=== PATIENT | female | born 1985 | race African-American/Black ===

== ENCOUNTER 2016-08-12 21:44 | Emergency (ER) | payer OTHER ==
[2016-08-12 22:02] VITALS: BP 144/89; PULSE 119; TEMP 98.4; BMI 39.9
[2016-08-12] MEDS ORDERED: OXYCODONE/APAP 5/325MG COMBO TABLET PO ONE (22:13)
[2016-08-12] MEDS ORDERED: ACETAMINOPHEN 325 MG TABLET (FP) PO ONE (22:13)
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
[2016-08-12] MEDS ORDERED: OXYCODONE/APAP 5/325MG COMBO TABLET ONE (23:07)
[2016-08-12] MEDS ORDERED: ACETAMINOPHEN 325 MG TABLET (FP) ONE (23:07)
[2016-08-13] MEDS ORDERED: KETOROLAC TROMETHAMINE 60 MG/2 ML VIAL IM ONE (00:37)
[2016-08-13] MEDS ORDERED: METHOCARBAMOL 500 MG TABLET PO ONE (00:37)
[2016-08-13] MEDS ORDERED: METHOCARBAMOL 500 MG TABLET ONE (01:03)
[2016-08-13] MEDS ORDERED: KETOROLAC TROMETHAMINE 60 MG/2 ML VIAL ONE (01:03)
== END 2016-08-13 01:26 | disposition home or self-care (01) ==
LOC: JER 21:44
PROC: 3E0233Z Introduction of Anti-inflammatory into Muscle, Percutaneous Approach (ICD-10-PCS; principal; 2016-08-12)
DX: S13.4XXA Sprain of ligaments of cervical spine, initial encounter (principal); M62.838 Other muscle spasm; V43.62XA Car passenger injured in collision with other type car in traffic accident, initial encounter; Y92.414 Local residential or business street as the place of occurrence of the external cause; Y93.89 Activity, other specified; Y99.8 Other external cause status
CPT/HCPCS: 70450-TC; 72125-TC; 84703; 99282-25

== ENCOUNTER 2018-11-03 21:45 | Inpatient (IN) | payer OTHER ==
[2018-11-03 22:56] VITALS: BMI 44.6
[2018-11-03] MEDS ORDERED: PROMETHAZINE HCL 25 MG/1 ML VIAL IVPUSH ONE (23:11)
[2018-11-03] MEDS ORDERED: DINOPROSTONE 10 MG VAGINAL SUPPOSITORY VG ONE (23:11)
[2018-11-03] MEDS ORDERED: BUTORPHANOL TARTRATE 1 MG/ML VIAL IVPB ONE (23:11)
--- NOTE | 2018-11-03 23:11 | HP ---
Past Medical History - Primary Care Physician PCP:: Ale Pastor - Admission Chief Complaint: 33yo P 2 @ 37.5 wks found to have increased proteinuria on 24hr UA - 475mg/24hr, was instructed by Dr. Buitrago in consultation with Dr. Oswald to come to the hospital for Induction of labor, She reports no COSTA, no Visual changes, no RUQ pain. She reports smoking on her way to the hospital. She suffers from GERD and consistently treats herself with Pepcid and Tums. She has no contructions, no VB, no LOF History of Present Illness: 1. Morbid obesity - Sleep apnea, does not use the device, GCT normal - EFW 7lb 2. Every day smoker 3. Gestational proteinuria - labs wnl, BPs on admission after smoking are not PEC range 4. GERD - takes Pepcid and Tums daily 5. HSV pos serology - Valtrex now History Source: Patient, Medical Record Limitations to Obtaining History: No Limitations - Past Medical History Pulmonary: Yes: Sleep Apnea, Other (chronic daily smoker) Gastrointestinal: Yes: GERD ...: 6 ...Para: 2 ...Term: 2 ( x 2 - 7lb, reports no complications) ...: 0 ...Spon : 0 ...Induced : 3 ...Multiple Gestation: 0 ...LMP: 02/10/18 ... Weeks Gestation by Dates: 38.0 ...EDC by Dates: 11/17/18 ...EDC by Sono: 11/20/18 - Past Surgical History Past Surgical History: Yes: None Hx Myomectomy: No Hx Transabdominal Cerclage: No - Smoking History Smoking history: Current every day smoker Have you smoked in the past 12 months: Yes Aproximately how many cigarettes per day: 10 - Alcohol/Substance Use Hx Alcohol Use: No History of Substance Use: reports: None - Social History Usual Living Arrangement: Yes: With Child History of Recent Travel: No Home Medications - Allergies Allergies/Adverse Reactions: Allergies Allergy/AdvReac Type Severity Reaction Status Date / Time codeine Allergy Severe "tongue Verified 11/03/18 22:46 swell up" peanuts Allergy Severe toungue Uncoded 11/03/18 22:46 swelling - Home Medications Home Medications: Ambulatory Orders Albuterol Sulfate Inhaler - [Ventolin HFA Inhaler -] 2 inh PO Q4H #1 inh Ibuprofen [Motrin -] 600 mg PO TID #30 tablet 08/13/16 Methocarbamol [Robaxin -] 500 mg PO TID #30 tablet 08/13/16 Family Disease History - Family Disease History Family History: Unremarkable Review of Systems - Review of Systems Constitutional: reports: No Symptoms Eyes: reports: No Symptoms HENT: reports: No Symptoms Neck: reports: No Symptoms Cardiovascular: reports: No Symptoms Respiratory: reports: No Symptoms Gastrointestinal: reports: Other (Epigastric pain) Genitourinary: reports: No Symptoms Breasts: reports: No Symptoms Reported Musculoskeletal: reports: No Symptoms Integumentary: reports: No Symptoms Neurological: reports: No Symptoms Endocrine: reports: No Symptoms Hematology/Lymphatic: reports: No Symptoms Psychiatric: reports: No Symptoms Physical Exam - Maternity Vital Signs: Vital Signs Temperature 98.5 F 11/03/18 21:45 Pulse Rate 109 H 11/03/18 21:45 Respiratory Rate 18 11/03/18 21:45 Blood Pressure 136/76 11/03/18 21:45 O2 Sat by Pulse Oximetry (%) Constitutional: Yes: Well Nourished, No Distress, Calm Eyes: Yes: WNL, Conjunctiva Clear HENT: Yes: WNL, Atraumatic, Normocephalic Neck: Yes: WNL, Supple, Trachea Midline Cardiovascular: Yes: Regular Rate and Rhythm Lungs: Clear to auscultation Breast(s): Yes: WNL - Abdominal Exam/OB Fundal Height: 38 (EFW 7lb) Number of Fetuses: Single Presentation: Vertex Contractions: No Monitor Mode: External Heart Rate (range): 130 Heart Rate Location: Midline Category: I Accelerations: Uniform Decelerations: None - Vaginal Exam/OB Vaginal Bleediing: No Amniotic Membrane Status: Intact Presentation: Vertex/Position Station: -3 - Physical Exam Musculoskeletal: Yes: WNL, Muscle Weakness Edema: No Integumentary: Yes: WNL Deep Tendon Reflex Grade: Normal +2 ...Motor Strength: WNL Psychiatric: Yes: WNL, Alert, Oriented Assessment/Plan 33yo P2 @ 37.5wks with elevated BP to 155/92 on 7/2 and now significant proteinuria on 24hr UA collection of 475mg/24hr She is a smoker and has no other signs of preeclampsia, So likely mild preeclampsia with agravating factor of daily smoking, which increases risk of intrauterine demise Was counselled by DR. Buitrago and Dr. Oswald for Induction of labor I additionally explained the Induction process to her She would require cervical ripening, vaginal agent first and than Pitocin IV All pain medications discussed with her as well She requested food prior to IOL Admit to L&D IVF, NPO after she eats prior to starting the induction Will monitor BPs Preeclamptic labs Since mild Preeclampsia will currently not consider Mg SO4 seizure prophylaxis
[2018-11-03] MEDS: DEXTROSE 5%-LACTATED RINGERS 1,000 ML IV SCH (23:15)
[2018-11-03] MEDS ORDERED: ELECTROLYTE-148 SOLN 1,000 ML IV SCH (23:15)
[2018-11-03] MEDS ORDERED: valACYclovir HCL 500 MG TABLET (FP) PO ONE (23:25)
[2018-11-04 00:33] LABS: BASO % 0.2 % (0-2.0); EOS % 0.9 % (0-4.5); HEMATOCRIT 33.4 % (32.4-45.2); HEMOGLOBIN 11.1 GM/dL (10.7-15.3); LYMPH % 20.4 % (8-40); MCH 30.3 pg (25.7-33.7); MCHC 33.2 g/dl (32.0-36.0); MEAN CELL VOLUME 91.4 fl (80-96); MEAN PLT VOLUME 10.4 fl (7.5-11.1); MONO % 4.9 % (3.8-10.2); NEUT % 73.6 % (42.8-82.8); PLATELET COUNT 189 K/MM3 (134-434); RBC 3.65 M/mm3 (3.60-5.2); RDW 14.6 % (11.6-15.6); WHITE BLOOD COUNT 11.7 K/mm3 (4.0-10.0)
[2018-11-04 00:47] LABS: INR 0.9 (0.83-1.09); PROTHROMBIN TIME (PATIENT) 10.6 SEC (9.7-13.0)
[2018-11-04 00:49] LABS: ACTIVATED PTT 28.4 SECONDS (25.2-36.5)
[2018-11-04 00:54] LABS: BLOOD UREA NITROGEN 6.7 mg/dL (7-18); CALCIUM 8.2 mg/dL (8.5-10.1); CREATININE 0.5 mg/dL (0.55-1.3); POTASSIUM 3.6 mmol/L (3.5-5.1); SGOT/AST 11 U/L (15-37); SGPT/ALT 19 U/L (13-61)
[2018-11-04 01:02] LABS: URIC ACID 3.1 mg/dL (2.6-7.2)
[2018-11-04] MEDS: RANITIDINE HCL 150 MG TABLET (FP) PO SCH ×3 (01:30→22:45)
--- NOTE | 2018-11-04 02:10 | PN ---
Progress Note, Labor Vaginal Exam #1 Labor Exam Date: 11/04/18 Labor Exam Time: 01:45 Heart Rate (range): 140 Dilatation: 2 Effacement (%): 50% Amniotic Membrane Status: Intact Presentation: Vertex/Position Station: -4 Remarks: Patient finally agreed for Cervidil placement Placed into posterior fornix
[2018-11-04] MEDS ORDERED: ACETAMINOPHEN 500 MG TABLET (FP) ONE (11:29)
[2018-11-04] MEDS ORDERED: ACETAMINOPHEN 500 MG TABLET (FP) PO ONE (11:30)
[2018-11-04] MEDS ORDERED: OXYTOCIN 30 UNITS in 0.9% NS 30 UNIT/500 ML INFUS.BAG IVPB ONE (17:53)
[2018-11-04] MEDS ORDERED: OXYTOCIN 30 UNITS in 0.9% NS 30 UNIT/500 ML INFUS.BAG IVPB SCH (18:00)
[2018-11-04] MEDS ORDERED: ELECTROLYTE-148 SOLN 1,000 ML IV ONE (20:00)
--- NOTE | 2018-11-04 20:48 | PN ---
Ante-Partal Exam - Subjective Subjective: No complaints. Not feeling ctx's. Vital Signs: Vital Signs Temperature 98.2 F 11/04/18 20:00 Pulse Rate 82 11/04/18 20:00 Respiratory Rate 20 11/04/18 20:00 Blood Pressure 146/75 11/04/18 20:00 O2 Sat by Pulse Oximetry (%) Bleeding: No Headache: No Visual changes: No Right upper quadrant pain: No Pain (scale 1-10): 2 - Contractions Contractions: Yes Regularity: Regular Intensity: Unaware Monitor Mode: External - Exam during Labor Heart Rate: 130 Variability: Moderate Heart Rate Location: Midline Category: I Monitor Accelerations: Present Monitor Decelerations: None Exam: Vaginal Dilatation (cm): 3 Effacement (%): 20 Amniotic Membrane Status: Intact Presentation: Vertex Station: -4 Remarks: Adequate gynecoid pelvimetry. No HSV lesions. - Intrapartum Hemorrhage Risk Medium Risk Factors: None High Risk Factors: None Risk Score: 0 Risk Level: Low Risk - Assessment/Plan Assessment/Plan: 33yo P2 with at EGA 37w6d admitted for suspected preeclampsia in setting of morbid obesity. Pt's BP are in mild PEC range. She is asymptomatic. Fetus with Category I tracing. Plan to continue pitocin. Will try AROM when head is lower. Risks of obesity at delivery d/w pt.
[2018-11-05] MEDS: DEXTROSE 5%-LACTATED RINGERS 1,000 ML IV SCH ×2 (04:00→11:30)
--- NOTE | 2018-11-05 06:35 | PN ---
Ante-Partal Exam - Subjective Subjective: Pt w/o complaints, feels contractions. Vital Signs: Vital Signs Temperature 98.2 F 11/05/18 04:00 Pulse Rate 67 11/05/18 05:00 Respiratory Rate 20 11/05/18 05:00 Blood Pressure 117/51 L 11/05/18 05:00 O2 Sat by Pulse Oximetry (%) Bleeding: No Headache: No Visual changes: No Right upper quadrant pain: No Pain (scale 1-10): 4 - Contractions Contractions: Yes Regularity: Irregular Intensity: Mild Monitor Mode: External - Exam during Labor Heart Rate: 130 Variability: Moderate Heart Rate Location: Midline Category: I Monitor Accelerations: Present Monitor Decelerations: None Exam: Vaginal Dilatation (cm): 3 Effacement (%): 20 Amniotic Membrane Status: Intact Presentation: Vertex Station: -3 - Intrapartum Hemorrhage Risk Medium Risk Factors: None High Risk Factors: None Risk Score: 0 Risk Level: Low Risk - Assessment/Plan Assessment/Plan: 33yo P2 with pregn at 38wks admitted for labor indx. Pt with normal BP. tracing is Category I. Plan AROM with head descent.
--- NOTE | 2018-11-05 07:10 | PN ---
Ante-Partal Exam - Subjective Subjective: No complaints Vital Signs: Vital Signs Temperature 98.0 F 11/05/18 06:00 Pulse Rate 74 11/05/18 06:00 Respiratory Rate 20 11/05/18 06:00 Blood Pressure 129/64 11/05/18 06:00 O2 Sat by Pulse Oximetry (%) Bleeding: No Headache: No Visual changes: No Right upper quadrant pain: No Pain (scale 1-10): 4 - Contractions Contractions: Yes Regularity: Irregular (q3min) Intensity: Mild Monitor Mode: External - Exam during Labor Heart Rate: 130 Variability: Moderate Heart Rate Location: Midline Category: I Monitor Accelerations: Present Monitor Decelerations: None Exam: Vaginal Dilatation (cm): 3 Effacement (%): 20 Amniotic Membrane Status: Intact Presentation: Vertex Station: -4 - Intrapartum Hemorrhage Risk Medium Risk Factors: None High Risk Factors: None Risk Score: 0 Risk Level: Low Risk - Assessment/Plan Assessment/Plan: I attempted AROM however was unable to rupture membranes as head is out of pelvis and membranes could not be reached on exam. Will continue pitocin and await descent of head.
[2018-11-05] MEDS ORDERED: OXYTOCIN 30 UNITS in 0.9% NS 30 UNIT/500 ML INFUS.BAG IVPB ONE (09:52)
[2018-11-05] MEDS: RANITIDINE HCL 150 MG TABLET (FP) PO SCH (09:58)
[2018-11-05 10:02] VITALS: TEMP 98.4
[2018-11-05 11:13] VITALS: PULSE 86
[2018-11-05 13:46] LABS: RETICULOCYTES 1.96 % (0.5-1.5)
[2018-11-05 14:27] VITALS: BP 130/74
--- NOTE | 2018-11-05 14:39 | PN ---
Ante-Partal Exam - Subjective Subjective: Patient comfortable No contractions, mild back discomfort No headache, change in vision, RUQ pain Reports movement, denies leakage of fluid or vaginal bleeding Vital Signs: Vital Signs Temperature 98.4 F 11/05/18 10:00 Pulse Rate 86 11/05/18 11:00 Respiratory Rate 18 11/05/18 11:00 Blood Pressure 130/74 11/05/18 14:20 O2 Sat by Pulse Oximetry (%) Bleeding: No - Contractions Contractions: Yes Regularity: Regular Intensity: Unaware Monitor Mode: External - Exam during Labor Heart Rate: 140 Variability: Moderate Category: I Monitor Accelerations: Absent Monitor Decelerations: None Exam: Vaginal Dilatation (cm): 3 Effacement (%): 20 Presentation: Vertex Station: -4 - Intrapartum Hemorrhage Risk Medium Risk Factors: None High Risk Factors: None Risk Score: 0 Risk Level: Low Risk - Assessment/Plan Assessment/Plan: 33 yo HD # 3 @ 38 0/7 wks admitted for induction of labor for mild preeclampsia On pitocin for induction of labor, currently at 12, on pitocin for approximately 20 hours Patient maricarmen, however is not feeling contractions Unable to perform AROM as head is out of pelvis BPs mostly within normal range with occasional elevation (128-144 / 70-79) Repeat preeclamptic labs within normal limits; no proteinuria noted Discussed possible options including continuing induction of labor, delivery, or discharge home with close monitoring and readmission at a later date for induction of labor Reviewed risks of continued pitocin Reviewed risks of preeclampsia and possible development into ecclampsia Patient expresses strong desire to avoid delivery at all costs, strongly desires continued observation with plan for close BP monitring Patient reports she will check BPs at home TID She lives close and will present immediately to L&D / Triage if any worsening symptoms - to call or return if headache, change in vision, RUQ pain, new swelling, decreased movement, leakage of fluid, vaginal bleeding or contractions Plan for DC home with close follow up
[2018-11-05 14:44] LABS: EPI CELLS 29.8 /HPF (0-5/HPF); HYALINE CASTS 15 /lpf (0-8); PH,URINE 8.5 (5.0-8.0); URINE APPEARANCE CLOUDY; URINE BACTERIA 213.6 /hpf (NEGATIVE); URINE BILIRUBIN NEGATIVE (NEGATIVE); URINE COLOR YELLOW; URINE GLUCOSE (UA) NEGATIVE (NEGATIVE); URINE KETONE NEGATIVE (NEGATIVE); URINE LEUK ESTERASE 1+ (NEGATIVE); URINE NITRITE NEGATIVE (NEGATIVE); URINE PROTEIN NEGATIVE (NEGATIVE); URINE RBC 3 /hpf (0-4); URINE UROBILINOGEN 0.2 mg/dL (0.2-1.0); URINE WBC 4 /hpf (0-5)
== END 2018-11-05 16:05 | disposition home or self-care (01) | DRG 566 ==
LOC: JLDR 21:45
PROVIDERS: ADMIT Obstetrics & Gynecology; ATTEND Obstetrics & Gynecology
DX: O14.03 Mild to moderate pre-eclampsia, third trimester (principal); O99.213 Obesity complicating pregnancy, third trimester; E66.01 Morbid (severe) obesity due to excess calories; O12.13 Gestational proteinuria, third trimester; Z3A.38 38 weeks gestation of pregnancy; O26.893 Other specified pregnancy related conditions, third trimester; K21.9 Gastro-esophageal reflux disease without esophagitis; G47.30 Sleep apnea, unspecified; F17.210 Nicotine dependence, cigarettes, uncomplicated
CPT/HCPCS: 36415; 80048; 81003; 82977; 83010; 84450; 84460; 84550; 85025; 85032; 85044; 85610; 85730; 86593; 86850; 86900; 86901

== ENCOUNTER 2018-11-15 23:33 | Inpatient (IN) | payer OTHER ==
[2018-11-16] MEDS ORDERED: ELECTROLYTE-148 SOLN 500 ML IV SCH (01:00)
[2018-11-16] MEDS ORDERED: OXYTOCIN 30 UNITS in 0.9% NS 30 UNIT/500 ML INFUS.BAG IVPB ONE (02:00)
[2018-11-16] MEDS ORDERED: ELECTROLYTE-148 SOLN 500 ML IV ONE (02:00)
[2018-11-16 02:59] VITALS: BMI 44.2
[2018-11-16] MEDS ORDERED: OXYTOCIN 15 UNITS in 0.9% NS 15 UNIT/250 ML INFUS.BAG IVPB SCH (03:30)
[2018-11-16 03:42] LABS: EOS % 0.8 % (0-4.5); MCHC 33.1 g/dl (32.0-36.0); MEAN PLT VOLUME 10.6 fl (7.5-11.1); RDW 14.6 % (11.6-15.6)
[2018-11-16 03:55] LABS: BASO % 0.2 % (0-2.0); HEMOGLOBIN 11.9 GM/dL (10.7-15.3); LYMPH % 25.3 % (8-40); MCH 30.6 pg (25.7-33.7); MEAN CELL VOLUME 92.4 fl (80-96); MONO % 5.6 % (3.8-10.2); NEUT % 68.1 % (42.8-82.8); PLATELET COUNT 202 K/MM3 (134-434); WHITE BLOOD COUNT 10.6 K/mm3 (4.0-10.0)
[2018-11-16 03:57] LABS: INR 0.9 (0.83-1.09); PROTHROMBIN TIME (PATIENT) 10.6 SEC (9.7-13.0)
[2018-11-16 03:59] LABS: ACTIVATED PTT 26.8 SECONDS (25.2-36.5)
[2018-11-16 04:13] LABS: BLOOD UREA NITROGEN 13.3 mg/dL (7-18); CALCIUM 9.1 mg/dL (8.5-10.1); CREATININE 0.6 mg/dL (0.55-1.3); POTASSIUM 3.8 mmol/L (3.5-5.1)
--- NOTE | 2018-11-16 08:25 | HP ---
Past Medical History - Admission History of Present Illness: 33 yo @ 39 3/7 wks by first trimester ultrasound, EDC 11/20/2018 complicated by: 1. Obesity - starting BMI 42, s/p pulm consult 16 total weight gain Normal early and 26 wk GCT ultrasound: 10/29/18 - 2844 g (6 lb 4 oz), 37%ile 2. Labile BPs early 24 H urine at 12 weeks - 245 mg 24 h urine at 10/31 - 475, 11/12 - 465 Normal BPs now Patient presents with chief complaint of leakage of fluid at 1800. She reports movement, denies vaginal bleeding or contractions. - Past Medical History Pulmonary: Yes: Sleep Apnea, Other (chronic daily smoker) Gastrointestinal: Yes: GERD ...: 6 ...Para: 2 ...Term: 2 ...: 0 ...Spon : 0 ...Induced : 0 ...Multiple Gestation: 0 ...LMP: 02/10/18 ... Weeks Gestation by Dates: 39.5 ...EDC by Dates: 11/17/18 ...EDC by Sono: 11/20/18 - Past Surgical History Past Surgical History: Yes: None Hx Myomectomy: No Hx Transabdominal Cerclage: No - Smoking History Smoking history: Current every day smoker Have you smoked in the past 12 months: Yes Aproximately how many cigarettes per day: 0.5 - Alcohol/Substance Use Hx Alcohol Use: No History of Substance Use: reports: None - Social History History of Recent Travel: No Home Medications - Allergies Allergies/Adverse Reactions: Allergies Allergy/AdvReac Type Severity Reaction Status Date / Time codeine Allergy Severe "tongue Verified 11/03/18 22:46 swell up" peanuts Allergy Severe toungue Uncoded 11/03/18 22:46 swelling - Home Medications Home Medications: Ambulatory Orders Pnv No.95/Ferrous Fum/Folic AC [ Formula] 1 each PO DAILY 11/04/18 Family Disease History - Family Disease History Family History: Denies Review of Systems - Review of Systems Constitutional: reports: No Symptoms Cardiovascular: reports: No Symptoms Respiratory: reports: No Symptoms Genitourinary: reports: No Symptoms Neurological: reports: No Symptoms Endocrine: reports: No Symptoms Physical Exam - Maternity Vital Signs: Vital Signs Temperature 98.2 F 11/16/18 06:00 Pulse Rate 73 11/16/18 06:00 Respiratory Rate 20 11/16/18 06:00 Blood Pressure 121/57 L 11/16/18 06:00 O2 Sat by Pulse Oximetry (%) Constitutional: Yes: Well Nourished, No Distress, Calm Cardiovascular: Yes: Regular Rate and Rhythm Lungs: Clear to auscultation - Abdominal Exam/OB Number of Fetuses: Single Presentation: Vertex Contractions: Yes Regularity: Regular Intensity: Moderate Category: I Accelerations: Non-Uniform Decelerations: None - Vaginal Exam/OB Vaginal Bleediing: No Dilatation (cm): 5 Effacement (%): 50 Amniotic Membrane Status: Ruptured Presentation: Vertex/Position Station: -2 - Physical Exam Psychiatric: Yes: Alert, Oriented - Labs Lab Results: CBC, BMP 11/16/18 01:50 11/16/18 01:50 Hemorrhage Risk Assessment - Risk Factors Medium Risk Factors: Yes: Obesity (BMI >40) High Risk Factors: Yes: None Risk Score: 1 Risk Level: Medium Risk Assessment/Plan 33 yo s/p SROM, augmentation of labor 1. Admit to L&D 2. GBS negative 3. Routine labs collected and sent 4. Will offer pain medication upon request
[2018-11-16] MEDS ORDERED: FENTANYL/BUPIVACAINE/NS/PF - PCEA - 50 ML DISP.SYRIN EP ONE (08:44)
[2018-11-16] MEDS ORDERED: NALOXONE HCL 0.4 MG/ML VIAL IVPUSH PRN (10:48)
[2018-11-16] MEDS ORDERED: FENTANYL/BUPIVACAINE/NS/PF - PCEA - 50 ML DISP.SYRIN EP SCH (11:00)
[2018-11-16] MEDS ORDERED: TUBERCULIN PPD 5 TU/0.1ML SYRINGE (IN PATIENT USE ONLY) ID ONE (11:00)
--- NOTE | 2018-11-16 11:45 | PN ---
Ante-Partal Exam - Subjective Subjective: Patient reports pressure Vital Signs: Vital Signs Temperature 98.3 F 11/16/18 10:00 Pulse Rate 91 H 11/16/18 10:45 Respiratory Rate 20 11/16/18 10:45 Blood Pressure 122/61 11/16/18 10:45 O2 Sat by Pulse Oximetry (%) 99 11/16/18 11:34 Bleeding: No Headache: No Visual changes: No Right upper quadrant pain: No - Contractions Contractions: Yes Regularity: Regular - Exam during Labor Heart Rate: 130 Variability: Moderate Category: I Monitor Accelerations: Present Monitor Decelerations: None Exam: Vaginal Dilatation (cm): 9.5 Effacement (%): 100 Amniotic Membrane Status: Intact Amniotic Fluid: Clear Presentation: Vertex Station: 0 - Intrapartum Hemorrhage Risk Medium Risk Factors: None High Risk Factors: None Risk Score: 0 Risk Level: Low Risk - Assessment/Plan Assessment/Plan: 33 yo active labor 1. Good cervical change 2. GBS neg 3. Pain well controlled with epidural 4. Will proceed with expectant management
[2018-11-16] MEDS ORDERED: LIDOCAINE HCL 1% PRESERVATIVE FREE - 30ML VIAL ONE (11:52)
[2018-11-16] MEDS ORDERED: OXYTOCIN 20 UNITS in 0.9% NS 20 UNIT/1,000 ML INFUS.BAG IV ONE (11:52)
--- NOTE | 2018-11-16 13:13 | PN ---
Delivery - Delivery Vaginal Delivery: No Problems Type of Anesthesia: Epidural Episiotomy/Laceration: None EBL (cc): 200 Delivery, Single - Stages of Labor Date 1st Stage Initiatied: 11/16/18 Time 1st Stage Initiated: 09:00 Date 2nd Stage Initiated: 11/16/18 Time 2nd Stage Initiated: 12:50 Date of Delivery: 11/16/18 Time of Delivery: 12:58 Date Placenta Delivered: 11/16/18 Time Placenta Delivered: 13:02 Placenta: Yes: Spontaneous - Condition of Infant Gender: Female Position: Left, OA Total Hours ROM (Hrs/Mins): 19 hours 2 minutes - 1 Minute Total Score: 9 5 Minutes Total Score: 9 - Feeding Plan Initial Plan: Elected not to breastfeed exclusively throughout hospitalization Remarks - Remarks Remarks: Patient progressed to fully dilated and at 1258 via delivered a viable female in TACO position, APGARs 9,9. Weight and length unknown at this time. Head delivered spontaneously followed by shoulders and body without difficulty. with spontaneous cry and placed on mother's abdomen. Nose and mouth was bulb suctioned. Cord was clamped and cut. Perineum and vagina examined, no lacerations were noted. Placenta was delivered spontaneously and intact. 20 units of pitocin in 1 L IVF was given. All counts correct x 2. Mother and stable in LDR. EBL 200cc.
[2018-11-16] MEDS ORDERED: METHYLERGONOVINE MALEATE 0.2 MG/1 ML AMP IM PRN (13:14)
[2018-11-16] MEDS ORDERED: BISACODYL 10 MG SUPP.RECT RC PRN (13:14)
[2018-11-16] MEDS ORDERED: BENZOCAINE 20% 57 GM BOTTLE TP PRN (13:14)
[2018-11-16] MEDS ORDERED: WITCH HAZEL 50% (TUCKS) 40 PAD/JAR PAD TP PRN (13:14)
[2018-11-16] MEDS ORDERED: BENZOCAINE 28 GM HEMORRHOIDAL OINTMENT TP PRN (13:14)
[2018-11-16] MEDS ORDERED: OXYTOCIN 20 UNITS in 0.9% NS 20 UNIT/1,000 ML INFUS.BAG IV SCH (13:15)
[2018-11-16] MEDS: IBUPROFEN 600 MG TABLET (FP) PO PRN (20:59)
[2018-11-16] MEDS: ACETAMINOPHEN 325 MG TABLET (FP) PO PRN (21:00)
[2018-11-17] MEDS: IBUPROFEN 600 MG TABLET (FP) PO PRN ×2 (07:45→21:43)
[2018-11-17] MEDS: ACETAMINOPHEN 325 MG TABLET (FP) PO PRN ×2 (07:46→21:46)
[2018-11-17 08:22] LABS: BASO % 0.2 % (0-2.0); EOS % 0.9 % (0-4.5); HEMATOCRIT 38.6 % (32.4-45.2); HEMOGLOBIN 12.8 GM/dL (10.7-15.3); LYMPH % 19.2 % (8-40); MCH 30.5 pg (25.7-33.7); MEAN CELL VOLUME 92.5 fl (80-96); MEAN PLT VOLUME 10.3 fl (7.5-11.1); MONO % 4.7 % (3.8-10.2); PLATELET COUNT 208 K/MM3 (134-434); RBC 4.18 M/mm3 (3.60-5.2); RDW 14.5 % (11.6-15.6); WHITE BLOOD COUNT 13.7 K/mm3 (4.0-10.0)
--- NOTE | 2018-11-17 09:18 | PN ---
Post Progress Note - Subjective Subjective: Patient without acute complaints. Denies headache, change in vision, right upper quadrant pain. Reports tolerating oral intake without nausea or vomiting. Ambulating without dizziness. Denies fevers or chills. Pain well controlled with oral pain medication. without difficulty. Passing flatus. Post Day: 1 Type of Delivery: Vital Signs: Vital Signs Temperature 97.9 F 11/17/18 05:47 Pulse Rate 84 11/17/18 05:47 Respiratory Rate 18 11/17/18 05:47 Blood Pressure 108/59 L 11/17/18 05:47 O2 Sat by Pulse Oximetry (%) 100 11/16/18 14:15 Breast Exam: Yes: Soft Uterus: Yes: Fundus Firm, Fundus below umbilicus Abdomen/GI: Yes: Abdomen soft, Passing flatus. No: Abdominal Distention, Tender Lochia: Yes: Rubra Lochia, amount: Small Extremities: Yes: Calves non-tender, Edema (+1) Perineum: Yes: Intact Activity: Ambulating - Labs Labs: CBC WBC 13.7 K/mm3 (4.0-10.0) H 11/17/18 07:49 RBC 4.18 M/mm3 (3.60-5.2) 11/17/18 07:49 Hgb 12.8 GM/dL (10.7-15.3) 11/17/18 07:49 Hct 38.6 % (32.4-45.2) 11/17/18 07:49 MCV 92.5 fl (80-96) 11/17/18 07:49 MCH 30.5 pg (25.7-33.7) 11/17/18 07:49 MCHC 33.0 g/dl (32.0-36.0) 11/17/18 07:49 RDW 14.5 % (11.6-15.6) 11/17/18 07:49 Plt Count 208 K/MM3 (134-434) 11/17/18 07:49 MPV 10.3 fl (7.5-11.1) 11/17/18 07:49 Absolute Neuts (auto) 10.3 K/mm3 (1.5-8.0) H 11/17/18 07:49 Neutrophils % 75.0 % (42.8-82.8) 11/17/18 07:49 Lymphocytes % 19.2 % (8-40) D 11/17/18 07:49 Monocytes % 4.7 % (3.8-10.2) 11/17/18 07:49 Eosinophils % 0.9 % (0-4.5) 11/17/18 07:49 Basophils % 0.2 % (0-2.0) 11/17/18 07:49 Nucleated RBC % 0 % (0-0) 11/17/18 07:49 Assessment/Plan 33 yo PPD # 1 s/p , afebrile, vital signs stable 1. Continue routine care. 2. Follow up AM CBC 3. Rh positive status, no rhogam indicated. 4. Encourage ambulation 5. Continue oral pain medication 6. Anticipate discharge home day #2
[2018-11-17] MEDS ORDERED: DIPHTH,PERTUSS(ACELL),TET 0.5 ML DISP.SYRIN IM ONE ×2 (10:00)
[2018-11-17] MEDS ORDERED: ENOXAPARIN NA (PORCINE) 40 MG/0.4 ML DISP.SYRIN SQ SCH (10:00)
--- NOTE | 2018-11-17 12:48 | DS ---
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: Vital Signs Temperature 98.1 F 11/17/18 09:44 Pulse Rate 84 11/17/18 09:44 Respiratory Rate 20 11/17/18 09:44 Blood Pressure 122/82 11/17/18 09:44 O2 Sat by Pulse Oximetry (%) 100 11/16/18 14:15 Labs: CBC, BMP 11/17/18 07:49 11/16/18 01:50 Delivery - Delivery Vaginal Delivery: No Problems Type of Anesthesia: Epidural Episiotomy/Laceration: None EBL (cc): 200 Delivery, Single - Stages of Labor Date 1st Stage Initiatied: 11/16/18 Time 1st Stage Initiated: 09:00 Date 2nd Stage Initiated: 11/16/18 Time 2nd Stage Initiated: 12:50 Date of Delivery: 11/16/18 Time of Delivery: 12:58 Time Placenta Delivered: 13:02 Placenta: Yes: Spontaneous - 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 Patient progressed and delivered via a viable female PPD # 1 patient ambulated, voiding, passing gas, tolerating oral intake and with adequate pain control. She fulfilled all criteria for discharge PPD #2 Condition: Good - Instructions Diet, Activity, Other Instructions: RTO 2 weeks for BP check Physical activity Resume your normal everyday activity as tolerated no heavy lifting or exercise until seen by your surgeon. You may walk unlimited teresa of and climb stairs. You may resume driving the car when you feel safe and comfortable behind the wheel. No sexual activity as instructed. Diet There are no dietary restrictions. Eat healthy, high-fiber foods. Drink 6 to 8 glasses of liquid each day. This will assist in keeping your bowels are regular. Pain management You may take Tylenol or acetaminophen or Ibuprofen (for example, Motrin, Advil etc.) from my pain prescription medication is ordered should be taken as prescribed for moderate to severe pain. Call MD for any of the following: Severe pain not relieved by medication Fever of 101 or higher Excessive bleeding or drainage on dressing Inability to urinate Disposition: HOME - Home Medications Comprehensive Discharge Medication List: Ambulatory Orders Pnv No.95/Ferrous Fum/Folic AC [ Formula] 1 each PO DAILY 11/04/18
[2018-11-17] MEDS ORDERED: SENNOSIDES/DOCUSATE COMBO (SENNA PLUS) TABLET (UD) PO PRN (22:00)
[2018-11-18 09:25] VITALS: BP 128/74; PULSE 74; TEMP 99.4
--- NOTE | 2018-11-18 09:55 | PN ---
Post Progress Note - Subjective Subjective: Patient without acute complaints. Denies headache, change in vision, right upper quadrant pain. Reports tolerating oral intake without nausea or vomiting. Ambulating without dizziness. Denies fevers or chills. Pain well controlled with oral pain medication. without difficulty. Passing flatus. Post Day: 2 Type of Delivery: Vital Signs: Vital Signs Temperature 99.4 F 11/18/18 09:00 Pulse Rate 74 11/18/18 09:00 Respiratory Rate 18 11/18/18 09:00 Blood Pressure 128/74 11/18/18 09:00 O2 Sat by Pulse Oximetry (%) 100 11/16/18 14:15 Breast Exam: Yes: Soft Uterus: Yes: Fundus Firm Abdomen/GI: Yes: Abdomen soft, Tolerating PO Lochia: Yes: Rubra Lochia, amount: Small Extremities: Yes: Calves non-tender Perineum: Yes: Intact Activity: Ambulating - Labs Labs: CBC WBC 13.7 K/mm3 (4.0-10.0) H 11/17/18 07:49 RBC 4.18 M/mm3 (3.60-5.2) 11/17/18 07:49 Hgb 12.8 GM/dL (10.7-15.3) 11/17/18 07:49 Hct 38.6 % (32.4-45.2) 11/17/18 07:49 MCV 92.5 fl (80-96) 11/17/18 07:49 MCH 30.5 pg (25.7-33.7) 11/17/18 07:49 MCHC 33.0 g/dl (32.0-36.0) 11/17/18 07:49 RDW 14.5 % (11.6-15.6) 11/17/18 07:49 Plt Count 208 K/MM3 (134-434) 11/17/18 07:49 MPV 10.3 fl (7.5-11.1) 11/17/18 07:49 Absolute Neuts (auto) 10.3 K/mm3 (1.5-8.0) H 11/17/18 07:49 Neutrophils % 75.0 % (42.8-82.8) 11/17/18 07:49 Lymphocytes % 19.2 % (8-40) D 11/17/18 07:49 Monocytes % 4.7 % (3.8-10.2) 11/17/18 07:49 Eosinophils % 0.9 % (0-4.5) 11/17/18 07:49 Basophils % 0.2 % (0-2.0) 11/17/18 07:49 Nucleated RBC % 0 % (0-0) 11/17/18 07:49 Assessment/Plan 33yo P3 s/p VSS, Afebrile, normotensive Rh positive, no need for RhoGam D/C home NPV x 6wks RTO 4 wks instructed
== END 2018-11-18 13:20 | disposition home or self-care (01) | DRG 560 ==
LOC: JLDR 23:33 → J3W 11-16 15:00
PROVIDERS: ADMIT Obstetrics & Gynecology; ATTEND Obstetrics & Gynecology
PROC: 10E0XZZ Delivery of Products of Conception, External Approach (ICD-10-PCS; principal; 2018-11-16)
DX: O99.214 Obesity complicating childbirth (principal); Z3A.39 39 weeks gestation of pregnancy; Z37.0 Single live birth
CPT/HCPCS: 36415; 59409; 80048; 85025; 85610; 85730; 86593; 86850; 86900; 86901; 90715

== ENCOUNTER 2024-12-13 21:25 | Emergency (ER) | payer OTHER ==
[2024-12-13 21:30] VITALS: TEMP 98.8; BMI 39.4
[2024-12-13] MEDS ORDERED: ONDANSETRON *ODT* 4 MG TABLET ONE (21:42)
[2024-12-13] MEDS: ONDANSETRON *ODT* 4 MG TABLET SL ONE (21:44)
[2024-12-13] MEDS ORDERED: FAMOTIDINE 20 MG TABLET ONE (21:54)
[2024-12-13] MEDS ORDERED: DEXAMETHASONE 4 MG TABLET (FP) ONE (21:54)
[2024-12-13] MEDS: DEXAMETHASONE 4 MG TABLET (FP) PO ONE (21:59)
[2024-12-13] MEDS: FAMOTIDINE 20 MG TABLET PO ONE (21:59)
[2024-12-13 23:05] VITALS: BP 114/60; PULSE 72; RESP 16
== END 2024-12-13 23:05 | disposition home or self-care (01) ==
LOC: JER 21:25
DX: R11.10 Vomiting, unspecified (principal); R20.2 Paresthesia of skin; R06.4 Hyperventilation; T78.1XXA Other adverse food reactions, not elsewhere classified, initial encounter
CPT/HCPCS: 99283-25; Q0162